=== PATIENT | male | born 1980 | race African-American/Black ===

== ENCOUNTER 2016-10-27 08:09 | Emergency (ER) | payer OTHER ==
--- NOTE | 2016-10-27 08:29 | ED THROAT/DENTAL COMPLAINT ---
History of Present Illness General Chief Complaint: Sore Throat, Dental Pain Stated Complaint: SORE THROAT Source: patient, old records Exam Limitations: no limitations Vital Signs & Intake/Output Vital Signs & Intake/Output Vital Signs Date Time Temp Pulse Resp B/P Pulse O2 O2 Flow FiO2 Ox Delivery Rate 10/27 0812 97.3 97 16 98 Room Air Allergies Coded Allergies: No Known Allergies (10/27/16) Reconcile Medications Amoxicillin 875 MG TABLET 1 TAB PO BID tonsillitis uvulitis Diphenhydramine HCl (Benadryl Allergy) 25 MG TABLET 1-2 TAB PO Q6P PRN uvulitis Hydrochlorothiazide 25 MG TABLET 1 TAB PO DAILY HTN (Reported) Ibuprofen 600 MG TABLET 1 TAB PO Q6PRN PRN pain with food Lisinopril 40 MG TABLET 1 TAB PO DAILY HTN (Reported) [Magic mouthwash] 5-10 ML PO Q6P PRN throat pain maalox, viscous lidocaine, benadryl 1:1:1 Prednisone 20 MG TABLET 1 TAB PO BID tonsillitis, uvulitis Triage Note: TRIAGE; PT TO ED WITH SORE THROAT, UNABLE TO TALK MUCH DUE TO TONSILS ENLARGED. Triage Nurses Notes Reviewed? yes Onset: Evening Duration: hour(s):, constant, continues in ED Timing: recent history Injury Environment: home Severity: moderate No Modifying Factors: none Modifying Factors: Worsens With: eating. HPI: Several hours prior to admission patient complains of tonsillar enlargement swollen uvula with difficulty swallowing secondary to pain. He denies fever chills nausea vomiting diarrhea abdominal pain chest pain shortness breath headache dysuria rash bleeding Past History Travel History Traveled to [place] past 21 day No Medical History Any Pertinent Medical History? see below for history Cardiovascular: hypertension Surgical History Surgical History: non-contributory Psychosocial History What is your primary language Liberian Tobacco Use: Never used Family History Hx Contributory? No Review of Systems Review of Systems Constitutional: Reports: no symptoms. EENTM: Reports: see HPI, throat pain. Respiratory: Reports: no symptoms. Cardiovascular: Reports: no symptoms. GI: Reports: no symptoms. Genitourinary: Reports: no symptoms. Musculoskeletal: Reports: no symptoms. Skin: Reports: no symptoms. Neurological/Psychological: Reports: no symptoms. Hematologic/Endocrine: Reports: no symptoms. Immunologic/Allergic: Reports: no symptoms. All Other Systems: Reviewed and Negative Physical Exam Physical Exam General Appearance: well developed/nourished, alert, awake, anxious, moderate distress Head: atraumatic, normal appearance Eyes: Bilateral: normal appearance, PERRL, EOMI. Ears: Bilateral: canal normal, Tympanic normal. Nose: normal inspection Mouth/Throat: tonsillar swelling, uvula swelling Neck: normal inspection, supple, full range of motion, trachea midline, lymphadenopathy (R), lymphadenopathy (L) Cardiovascular/Respiratory: normal breath sounds, normal peripheral pulses, regular rate/rhythm, no respiratory distress Back: normal inspection, normal range of motion Neurologic/Psych: no motor/sensory deficits, awake, alert, oriented x 3, normal gait, normal mood/affect Skin: intact, normal color, warm/dry Core Measures ACS in differential dx? No Severe Sepsis Present: No Septic Shock Present: No Progress Differential Diagnosis: stomatitis/gingivitis, strep pharyngitis Plan of Care: Orders Procedure Date/time Status THROAT CULTURE W/QUICK STREP 10/27 0716 Active Departure Departure Time of Disposition: 827 Disposition: HOME OR SELF CARE Condition: Stable Clinical Impression Primary Impression: Uvulitis Secondary Impressions: Tonsillitis Additional Instructions: Stop Lisinopril and have your doctor change your medication. Departure Forms: Customer Survey General Discharge Information RELEASE- WORK Prescriptions: Current Visit Scripts Amoxicillin 1 TAB PO BID #20 TAB Prednisone 1 TAB PO BID #10 TAB Diphenhydramine HCl (Benadryl Allergy) 1-2 TAB PO Q6P PRN uvulitis #30 TAB Ref 1 [Magic mouthwash] 5-10 ML PO Q6P PRN throat pain #270 ML Ref 1 maalox, viscous lidocaine, benadryl 1:1:1 Ibuprofen 1 TAB PO Q6PRN PRN pain #50 TAB with food
[2016-10-27] MEDS ORDERED: Magic mouthwash PO (08:34)
[2016-10-27] MEDS ORDERED: PREDNISONE20 M1 PO (08:34)
[2016-10-27] MEDS ORDERED: IBUPROFEN600 M1 PO (08:34)
[2016-10-27] MEDS ORDERED: BENADRYL ALLERG25 M2 PO (08:34)
[2016-10-27] MEDS ORDERED: AMOXICILLIN875 M1 PO (08:34)
[2016-10-27] MEDS ORDERED: HYDROCHLOROTHIA25 M1 PO (08:49)
[2016-10-27] MEDS ORDERED: LISINOPRIL40 M1 PO (08:49)
== END 2016-10-27 09:11 ==
LOC: ERH 08:09
DX: K12.2 Cellulitis and abscess of mouth (principal); J03.90 Acute tonsillitis, unspecified